=== PATIENT | male | born 1970 | race Caucasian/White ===

== ENCOUNTER 2017-07-27 15:42 | Inpatient (IN) | payer BC, OTHER ==
[~2017-07-27] VITALS: Ht 182.9 cm; Wt 102.0 kg
--- NOTE | 2017-07-27 16:00 | EMERGENCY ROOM VISIT NOTE ---
History Report prepared by Francis: Yann Hollis Under the Supervision of: Dr. Kayode Odom D.O. First contact with patient: 15:49 Chief Complaint: SWELLING TO EXTREMITY Stated Complaint: LOWER RIGHT LEG SWELLING, PAIN History of Present Illness The patient is a 46 year old male who presents to the Emergency Room with complaints of swelling in his right lower extremity. Swelling has been present for the past 2 months. He notes that it worsens intermittently throughout the day. This does improve overnight and with elevation of his leg. He describes it as a tightness. He is a gas truck driver. Denies any history of any previous blood clots. Denies any chest pain or shortness of breath. He notes all his symptoms started 2 months ago when he thinks he pulled a calf muscle. Since then he has had the intermittent swelling. He does not have a primary care doctor. He has no other complaints. Denies any exertional chest pain or shortness of breath. He is able to sleep lying flat. No history of any heart failure. Pt denies headache, change in vision, fevers, nausea, vomiting, diarrhea, pain with urination, recent trauma, recent brain bleeding, blood in urine, coughing up blood, blood in stool, and melena. Source of History: patient Onset: 2 months Position: leg (right) Quality: other (swelling) Timing: intermittent, worsening Modifying Factors (Relieving): other (elevation) Associated Symptoms: No fevers, No headache, No chest pain, No SOB, No nausea, No vomiting, No melena, No diarrhea, No urinary symptoms Review of Systems See HPI for pertinent positives & negatives. A total of 10 systems reviewed and were otherwise negative. Past Medical & Surgical Medical Problems: (1) No Known Active Medical Problems (2) Pulmonary emboli Family History Patient reports no known family medical history. Social History Smoking Status: Never Smoker Smokeless Tobacco Use: No Alcohol Use: occasionally Marital Status: in relationship Housing Status: lives with significant other Current/Historical Medications No Active Prescriptions or Reported Meds Allergies Coded Allergies: No Known Allergies (Unverified , 07/27/17) Physical Exam Vital Signs Date Time Temp Pulse Resp B/P (MAP) Pulse Ox O2 Delivery O2 Flow Rate FiO2 07/27/17 18:57 79 17 150/99 95 Room Air 07/27/17 18:05 70 18 150/101 96 Room Air 07/27/17 17:07 81 19 157/93 97 Room Air 07/27/17 15:46 36.7 80 18 150/99 95 Room Air Physical Exam GENERAL: Sitting up at the edge of the bed, alert, well appearing, well nourished, no distress, non-toxic EYE EXAM: normal conjunctiva OROPHARYNX: no exudate, no erythema, lips, buccal mucosa, and tongue normal and mucous membranes are moist NECK: supple, no nuchal rigidity, no adenopathy, non-tender LUNGS: Clear to auscultation. Normal chest wall mechanics HEART: no murmurs, S1 normal and S2 normal ABDOMEN: abdomen soft, non-tender, normo-active bowel sounds, no masses, no rebound or guarding. BACK: Back is symmetrical on inspection and there is no deformity, no midline tenderness, no CVA tenderness. SKIN: no rashes and no bruising UPPER EXTREMITIES: upper extremities are grossly normal. LOWER EXTREMITIES: Right calf larger than left with pitting edema up to the knee , DP and PT 2/4, distal pulses in tact, ambulates without difficulty. NEURO EXAM: Normal sensorium, cranial nerves II-XII grossly intact, normal speech, no gross weakness of arms, no gross weakness of legs. Medical Decision & Procedures ER Provider Diagnostic Interpretation: Radiology results as stated below per my review and the radiologist's interpretation: VENOUS DOPP LOWER EXT UNILAT CLINICAL HISTORY: 46 years-old Male presenting with swelling in rle . TECHNIQUE: Real-time grayscale and color and spectral Doppler ultrasound imaging of the veins of the right lower extremity was performed. Compression and augmentation were also utilized. COMPARISON: None. FINDINGS: Right: Common femoral vein: Patent. Femoral vein: Nearly occlusive filling defect within the right femoral vein along its entire course. Greater saphenous vein: Patent. Popliteal vein: Occlusive filling defect within the right popliteal vein except at the most inferior portion. Calf veins: Filling defects in the right posterior tibial and peroneal veins. Other: None. IMPRESSION: Acute deep venous thrombosis extending from the calf veins to the right femoral vein, which is largely occlusive or nearly occlusive. The report will be called/faxed according to standard departmental protocol. Electronically signed by: Gopi Champion M.D. 07/27/2017 5:42 PM Dictated Date/Time: 07/27/2017 5:40 PM (CHEST FOR PE) ANGIO WITH CLINICAL HISTORY: 46 years-old Male presenting with DVT with shortness of breath, right lower extremity swelling. TECHNIQUE: Multidetector CT angiography of the chest was performed after administration of intravenous contrast. 3-D volumetric and/or maximum intensity projection (MIP) images were subsequently reconstructed for review. IV contrast: 100 mL of Optiray 320. A dose lowering technique was used consistent with the principles of ALARA (as low as reasonably achievable). COMPARISON: Lower extremity venous doppler ultrasound performed the same day. CT DOSE (mGy.cm): The estimated cumulative dose is 701.51 mGy.cm. FINDINGS: Cupola Liner Helper topogram: Unremarkable. Pulmonary vasculature: The study is adequate for assessment of the pulmonary vascular tree. Bilateral extensive acute pulmonary emboli in the distal right main and left main pulmonary arteries as well as multiple lobar and segmental arteries extensively involving the lower lobes. Main pulmonary artery is mildly enlarged measuring 3.4 cm in transverse dimension. Mild flattening of the interventricular septum. No intracardiac intracardiac filling defect. No reflux of contrast into the hepatic veins. Remaining chest: On soft tissue windows, normal thyroid and thoracic inlet. No axillary, supraclavicular, hilar, or mediastinal lymphadenopathy. Normal aorta. Mild multichamber enlargement of the heart. No pericardial or pleural effusion. Hepatic steatosis. On lung windows, extensive dependent groundglass and reticular opacities in a subpleural distribution. Minimal more solid peripheral consolidation noted at the lateral base of the left lower lobe. Additional peripheral small nodular opacity in the lingula (series 4 image 131). Airways patent. On bone windows, mild degenerative changes of the thoracic spine. IMPRESSION: 1. Bilateral acute pulmonary emboli with a significant embolus burden involving the distal right and left main pulmonary arteries and their distal branches. This most probably effects the bilateral lower lobes. 2. Flattening of the interventricular septum and enlargement of the main pulmonary artery suggests right heart strain. Correlate clinically. 3. Significant dependent consolidation likely atelectasis. More nodular peripheral consolidation in the lingula and left lung base could represent early or developing infarcts. These findings were discussed with Dr. Odom by Dr. Champion at 6:30 PM on 07/27/2017. Electronically signed by: Gopi Champion M.D. 07/27/2017 6:37 PM Dictated Date/Time: 07/27/2017 6:27 PM Laboratory Results 07/27/17 16:07 Red Blood Count 5.59, Mean Corpuscular Volume 87.5, Mean Corpuscular Hemoglobin 30.2, Mean Corpuscular Hemoglobin Concent 34.6, Mean Platelet Volume 9.4, Neutrophils (%) (Auto) 63.9, Lymphocytes (%) (Auto) 24.0, Monocytes (%) (Auto) 7.5, Eosinophils (%) (Auto) 3.5, Basophils (%) (Auto) 0.8, Neutrophils # (Auto) 6.49, Lymphocytes # (Auto) 2.44, Monocytes # (Auto) 0.76, Eosinophils # (Auto) 0.36, Basophils # (Auto) 0.08 07/27/17 16:07 Test 07/27/17 16:07 White Blood Count 10.16 K/uL (4.8-10.8) Red Blood Count 5.59 M/uL (4.7-6.1) Hemoglobin 16.9 g/dL (14.0-18.0) Hematocrit 48.9 % (42-52) Mean Corpuscular Volume 87.5 fL (80-100) Mean Corpuscular Hemoglobin 30.2 pg (25-34) Mean Corpuscular Hemoglobin Concent 34.6 g/dl (32-36) Platelet Count 271 K/uL (130-400) Mean Platelet Volume 9.4 fL (7.4-10.4) Neutrophils (%) (Auto) 63.9 % Lymphocytes (%) (Auto) 24.0 % Monocytes (%) (Auto) 7.5 % Eosinophils (%) (Auto) 3.5 % Basophils (%) (Auto) 0.8 % Neutrophils # (Auto) 6.49 K/uL (1.4-6.5) Lymphocytes # (Auto) 2.44 K/uL (1.2-3.4) Monocytes # (Auto) 0.76 K/uL (0.11-0.59) Eosinophils # (Auto) 0.36 K/uL (0-0.5) Basophils # (Auto) 0.08 K/uL (0-0.2) RDW Standard Deviation 42.3 fL (36.4-46.3) RDW Coefficient of Variation 13.4 % (11.5-14.5) Immature Granulocyte % (Auto) 0.3 % Immature Granulocyte # (Auto) 0.03 K/uL (0.00-0.02) Prothrombin Time 11.0 SECONDS (9.0-12.0) Prothromb Time International Ratio 1.0 (0.9-1.1) Activated Partial Thromboplast Time 27.4 SECONDS (21.0-31.0) Partial Thromboplastin Ratio 1.1 Anion Gap 8.0 mmol/L (3-11) Est Creatinine Clear Calc Drug Dose 107.0 ml/min Estimated GFR () 91.5 Estimated GFR (Non- 79.0 BUN/Creatinine Ratio 10.7 (10-20) Calcium Level 9.8 mg/dl (8.5-10.1) Troponin I < 0.015 ng/ml (0-0.045) Pro-B-Type Natriuretic Peptide 50 pg/ml (0-450) Laboratory results per my review. Medications Administered Medications (Trade) Dose Ordered Sig/Natali Route Start Time Stop Time Status Last Admin Dose Admin Heparin Sodium/ Dextrose (Heparin 25,000 Unit/500ml D5W) 25,000 unit STK-MED ONCE .ROUTE 07/27/17 18:47 07/27/17 18:48 DC 07/27/17 18:54 25,000 UNIT Heparin Sodium (Porcine) (Heparin Sq 5000 Unit/0.5ml) 10,000 unit STK-MED ONCE .ROUTE 07/27/17 18:47 07/27/17 18:48 DC 07/27/17 18:54 7,000 UNIT ECG Indication: chest pain Rate (beats per minute): 76 Rhythm: sinus rhythm Findings: 1st degree AV block, no ectopy ED Course ED COURSE: Vital signs were reviewed and showed the patient is hypertensive. The patients medical record was reviewed The above diagnostic studies were performed and reviewed. ED treatments and interventions as stated above. 1549: The patient was evaluated in room C02B. A complete history and physical examination was performed. 1811: I reevaluated the patient, and he is going for a CT of the chest. 1832: Ordered Heparin Sodium/Dextrose 1 ea N/A 1838: Upon reevaluation, the patient is resting.I discussed my findings with the patient and he understands and agrees with the treatment plan. 1847: Ordered Heparin Sodium (Porcine) 64627 unit .ROUTE, Heparin Sodium/ Dextrose 20007 unit .ROUTE 1918: I discussed the patient's case with Dr. Yañez [facility] Hospitalist. The patient will be evaluated for further treatment and care. Based on the patients age, coexisting illnesses, exam and lab findings the decision to treat as an inpatient was made. The patient remained stable while under my care. The patient will be evaluated for further management. Medical Decision Differential diagnosis: Etiologies such as DVT, musculoskeletal, infection, joint effusion, trauma, lymphedema, idiopathic, CHF, as well as others were entertained. Patient is a 46-year-old male who presents to ER for swelling in the right lower extremity. He notes this is present for the past 2 months and waxes and wanes. He believes inciting episode/event was when he strained his calf. No previous blood clots. Pulses intact. Duplex and labs were obtained which showed extensive DVT in right lower shoulder. CT was performed and showed bilateral PEs. Patient has no bleeding risk factors. Denies any hemoptysis, hematemesis, recent trauma, recent surgery, previous brain bleeds, or melena. Heparin bolus and IV drip were started. Patient was updated following CT. Patient was admitted to internal medicine with bilateral PEs. Vitals were stable. Medication Reconcilliation Current Medication List: was personally reviewed by me Blood Pressure Screening Patient's blood pressure: Elevated blood pressure Blood pressure disposition: Referred to PCP Consults Time Called: 1910 Consulting Physician: Dr. Yañez [facility] Hospitalist Returned Call: 1918 I discussed the patient's case with Dr. Yañez [facility] Hospitalist. The patient will be evaluated for further treatment and care. Impression Primary Impression: Bilateral pulmonary embolism Additional Impression: DVT (deep venous thrombosis) Critical Care I have personally spent 35 minutes of critical care time in the direct management of this patient. This includes bedside care, interpretation of diagnostic studies, and testing, discussion with consultants, patient, and family members, and other required patient management activities. This 35 minutes is in excess of all separately billable procedures. Scribe Attestation The scribe's documentation has been prepared under my direction and personally reviewed by me in its entirety. I confirm that the note above accurately reflects all work, treatment, procedures, and medical decision making performed by me. Departure Information Dispostion Being Evaluated By Hospitalist Prescriptions No Active Prescriptions or Reported Meds Referrals Apirl Castillo D.O. (PCP) Patient Instructions My [facility] Problem Qualifiers Additional Impression: DVT (deep venous thrombosis) DVT location: lower extremity Affected thrombotic vein of extremity: unspecified vein of extremity Chronicity: acute Laterality: right Qualified Codes: I82.401 - Acute embolism and thrombosis of unspecified deep veins of right lower extremity
[2017-07-27 16:19] LABS: BASO % 0.8 %; BASO ABS # 0.08 K/uL (0-0.2); COMPLETE YES; EOS % 3.5 %; HEMATOCRIT 48.9 % (42-52); IG% 0.3 %; LYMPH ABS # 2.44 K/uL (1.2-3.4); MEAN CELL VOLUME 87.5 fL (80-100); MEAN CORPUSCULAR HEMOGLOBIN 30.2 pg (25-34); MEAN CORPUSCULAR HGB CONC 34.6 g/dl (32-36); MEAN PLATELET VOLUME 9.4 fL (7.4-10.4); MONO % 7.5 %; NEUT % 63.9 %; PLATELET COUNT 271 K/uL (130-400); RED BLOOD COUNT 5.59 M/uL (4.7-6.1); WHITE BLOOD COUNT 10.16 K/uL (4.8-10.8)
[2017-07-27 16:33] LABS: PARTIAL THROMBOPLASTIN RATIO 1.1
[2017-07-27 16:37] LABS: BUN/CREATININE RATIO 10.7 (10-20); CALCIUM 9.8 mg/dl (8.5-10.1); CREATININE 1.1 mg/dl (0.60-1.40); POTASSIUM 3.8 mmol/L (3.5-5.1)
--- NOTE | 2017-07-27 17:44 | DIAGNOSTIC IMAGING REPORT ---
VENOUS DOPP LOWER EXT UNILAT CLINICAL HISTORY: 46 years-old Male presenting with swelling in rle . TECHNIQUE: Real-time grayscale and color and spectral Doppler ultrasound imaging of the veins of the right lower extremity was performed. Compression and augmentation were also utilized. COMPARISON: None. FINDINGS: Right: Common femoral vein: Patent. Femoral vein: Nearly occlusive filling defect within the right femoral vein along its entire course. Greater saphenous vein: Patent. Popliteal vein: Occlusive filling defect within the right popliteal vein except at the most inferior portion. Calf veins: Filling defects in the right posterior tibial and peroneal veins. Other: None. IMPRESSION: Acute deep venous thrombosis extending from the calf veins to the right femoral vein, which is largely occlusive or nearly occlusive. The report will be called/faxed according to standard departmental protocol. Electronically signed by: Gopi Champion M.D. 07/27/2017 5:42 PM Dictated Date/Time: 07/27/2017 5:40 PM
[2017-07-27] MEDS ORDERED: OPTIRAY 320 IV PRN (18:00)
--- NOTE | 2017-07-27 18:39 | DIAGNOSTIC IMAGING REPORT ---
(CHEST FOR PE) ANGIO WITH CLINICAL HISTORY: 46 years-old Male presenting with DVT with shortness of breath, right lower extremity swelling. TECHNIQUE: Multidetector CT angiography of the chest was performed after administration of intravenous contrast. 3-D volumetric and/or maximum intensity projection (MIP) images were subsequently reconstructed for review. IV contrast: 100 mL of Optiray 320. A dose lowering technique was used consistent with the principles of ALARA (as low as reasonably achievable). COMPARISON: Lower extremity venous doppler ultrasound performed the same day. CT DOSE (mGy.cm): The estimated cumulative dose is 701.51 mGy.cm. FINDINGS: Laryngologist topogram: Unremarkable. Pulmonary vasculature: The study is adequate for assessment of the pulmonary vascular tree. Bilateral extensive acute pulmonary emboli in the distal right main and left main pulmonary arteries as well as multiple lobar and segmental arteries extensively involving the lower lobes. Main pulmonary artery is mildly enlarged measuring 3.4 cm in transverse dimension. Mild flattening of the interventricular septum. No intracardiac intracardiac filling defect. No reflux of contrast into the hepatic veins. Remaining chest: On soft tissue windows, normal thyroid and thoracic inlet. No axillary, supraclavicular, hilar, or mediastinal lymphadenopathy. Normal aorta. Mild multichamber enlargement of the heart. No pericardial or pleural effusion. Hepatic steatosis. On lung windows, extensive dependent groundglass and reticular opacities in a subpleural distribution. Minimal more solid peripheral consolidation noted at the lateral base of the left lower lobe. Additional peripheral small nodular opacity in the lingula (series 4 image 131). Airways patent. On bone windows, mild degenerative changes of the thoracic spine. IMPRESSION: 1. Bilateral acute pulmonary emboli with a significant embolus burden involving the distal right and left main pulmonary arteries and their distal branches. This most probably effects the bilateral lower lobes. 2. Flattening of the interventricular septum and enlargement of the main pulmonary artery suggests right heart strain. Correlate clinically. 3. Significant dependent consolidation likely atelectasis. More nodular peripheral consolidation in the lingula and left lung base could represent early or developing infarcts. These findings were discussed with Dr. Odom by Dr. Champion at 6:30 PM on 07/27/2017. Electronically signed by: Gopi Champion M.D. 07/27/2017 6:37 PM Dictated Date/Time: 07/27/2017 6:27 PM
[2017-07-27] MEDS ORDERED: HEPARIN SOD 5000 UNIT/0.5 ML CARP ONE (18:47)
[2017-07-27] MEDS ORDERED: HEPARIN 25000 UNIT/500 ML D5W ONE (18:47)
[2017-07-27] MEDS ORDERED: ACETAMINOPHEN 325 MG TAB PO PRN (19:30)
[2017-07-27] MEDS ORDERED: MoRPHine SULFATE 2 MG/ML CARP IV PRN (19:30)
[2017-07-27] MEDS ORDERED: ZOLPIDEM TARTRATE 5 MG TAB PO PRN (19:30)
[2017-07-27] MEDS ORDERED: MAGNESIUM HYDROXIDE SUSP 30 ML UDC PO PRN (19:30)
[2017-07-27] MEDS ORDERED: ONDANSETRON INJ 2 MG/ML 2 ML VIAL IV PRN (19:30)
[2017-07-27] MEDS ORDERED: ALUMINUM/MAGNESIUM/SIMETH (MAALOX MAX) 30 ML UDC PO PRN (19:30)
[2017-07-27] MEDS ORDERED: POLYETHYLENE (MIRALAX) 17 GM PACK PO PRN (19:30)
--- NOTE | 2017-07-27 19:41 | History and Physical ---
History & Physical Date & Time of Service: Jul 27, 2017 at 19:30 Chief Complaint: Lower Right Leg Swelling, Pain Primary Care Physician: No Doctor, Assigned History of Present Illness Source: patient 46 y/o M who denies a significant PMH - presenting with progressive pain and edema of his RLE. He believes this began when he sprained his calf a few weeks prior. He has not c/o SOB, CP, palpitations. He does describe a feeling of faitgue with exertion which is not normal and can feel some chest pressure with deep inspiration. Initial LE ultrasound describes an occlusive or near- occlusive R femoral DVT. CTA is notable for B/L PEs and may be consistent w/RV strain. There is no tachycardia or a strain pattern on the EKG. Past Medical/Surgical History Denies any active medical issues Family History Patient reports no known family medical history. Social History Smoking Status: Never Smoker Smokeless Tobacco Use: No Alcohol Use: none Marital Status: in relationship Allergies Coded Allergies: No Known Allergies (Unverified , 07/27/17) Home Medications No Active Prescriptions or Reported Meds Review of Systems Constitutional: No fever, No chills, No sweats Eyes: No worsening of vision ENT: No hearing loss, No unusual epistaxis, No nasal symptoms Respiratory: No cough Cardiovascular: No chest pain, No orthopnea, No PND Abdomen: No pain, No nausea, No vomiting Musculoskeletal: + muscle pain (RLE pain), + swelling, + calf pain Genitourinary - Male: No hematuria, No dysuria Neurologic: No memory loss, No paralysis, No weakness Psychiatric: No depression symptoms Endocrine: + fatigue (with exertion) Hematologic / Lymphatic: No abnormal bleeding/bruising Integumentary: No rash Allergic / Immunologic: No environmental allergies Physical Exam Vital Signs Date Time Temp Pulse Resp B/P (MAP) Pulse Ox O2 Delivery O2 Flow Rate FiO2 07/27/17 18:57 79 17 150/99 95 Room Air 07/27/17 18:05 70 18 150/101 96 Room Air 07/27/17 17:07 81 19 157/93 97 Room Air 07/27/17 15:46 36.7 80 18 150/99 95 Room Air General Appearance: WD/WN, no apparent distress Head: normocephalic Eyes: normal inspection ENT: normal ENT inspection Neck: supple, no JVD Respiratory/Chest: chest non-tender, lungs clear Cardiovascular: regular rate, rhythm, normal peripheral pulses Abdomen/GI: normal bowel sounds, non tender, soft Back: normal inspection, no CVA tenderness, no muscle spasm, normal range of motion Extremities/Musculoskelatal: normal inspection, no calf tenderness, normal capillary refill, no pedal edema, normal range of motion Neurologic/Psych: automated manufacturing instructor II-XII nml as tested, no motor/sensory deficits, alert, oriented x 3 Skin: normal color, warm/dry, no rash Diagnostics Laboratory Results Results Past 24 Hours Test 07/27/17 16:07 Range/Units White Blood Count 10.16 4.8-10.8 K/uL Red Blood Count 5.59 4.7-6.1 M/uL Hemoglobin 16.9 14.0-18.0 g/dL Hematocrit 48.9 42-52 % Mean Corpuscular Volume 87.5 80-100 fL Mean Corpuscular Hemoglobin 30.2 25-34 pg Mean Corpuscular Hemoglobin Concent 34.6 32-36 g/dl Platelet Count 271 130-400 K/uL Mean Platelet Volume 9.4 7.4-10.4 fL Neutrophils (%) (Auto) 63.9 % Lymphocytes (%) (Auto) 24.0 % Monocytes (%) (Auto) 7.5 % Eosinophils (%) (Auto) 3.5 % Basophils (%) (Auto) 0.8 % Neutrophils # (Auto) 6.49 1.4-6.5 K/uL Lymphocytes # (Auto) 2.44 1.2-3.4 K/uL Monocytes # (Auto) 0.76 0.11-0.59 K/uL Eosinophils # (Auto) 0.36 0-0.5 K/uL Basophils # (Auto) 0.08 0-0.2 K/uL RDW Standard Deviation 42.3 36.4-46.3 fL RDW Coefficient of Variation 13.4 11.5-14.5 % Immature Granulocyte % (Auto) 0.3 % Immature Granulocyte # (Auto) 0.03 0.00-0.02 K/uL Prothrombin Time 11.0 9.0-12.0 SECONDS Prothromb Time International Ratio 1.0 0.9-1.1 Activated Partial Thromboplast Time 27.4 21.0-31.0 SECONDS Partial Thromboplastin Ratio 1.1 Sodium Level 138 136-145 mmol/L Potassium Level 3.8 3.5-5.1 mmol/L Chloride Level 103 98-107 mmol/L Carbon Dioxide Level 28 21-32 mmol/L Anion Gap 8.0 3-11 mmol/L Blood Urea Nitrogen 12 7-18 mg/dl Creatinine 1.10 0.60-1.40 mg/dl Est Creatinine Clear Calc Drug Dose 107.0 ml/min Estimated GFR () 91.5 Estimated GFR (Non- 79.0 BUN/Creatinine Ratio 10.7 10-20 Random Glucose 79 70-99 mg/dl Calcium Level 9.8 8.5-10.1 mg/dl Pro-B-Type Natriuretic Peptide 50 0-450 pg/ml Diagnostic Radiology RLE US: Acute deep venous thrombosis extending from the calf veins to the right femoral vein, which is largely occlusive or nearly occlusive. CTA: 1. Bilateral acute pulmonary emboli with a significant embolus burden involving the distal right and left main pulmonary arteries and their distal branches. This most probably effects the bilateral lower lobes. 2. Flattening of the interventricular septum and enlargement of the main pulmonary artery suggests right heart strain. Correlate clinically. 3. Significant dependent consolidation likely atelectasis. More nodular peripheral consolidation in the lingula and left lung base could represent early or developing infarcts. EKG NSR Impression Assessment and Plan 46 y/o M who denies a significant PMH - presenting with progressive pain and edema of his RLE. He believes this began when he sprained his calf a few weeks prior. He has not c/o SOB, CP, palpitations. Initial LE ultrasound describes an occlusive R femoral DVT. CTA is notable for B/L PEs and may be consistent w/ RV strain. There is no tachycardia or a strain pattern on the EKG. 1) DVT/PE - pt placed on Heparin and will monitor on telemetry overnight. He can likely follow with hematology as outpt for hypercoag workup. He does have possible trauma, stasis and obesity as risk factors for PE and may not be inherently hypercoagulable. Full code - Full dose heparin - total time for this admit including review of labs, imaging - discussion with pt and ER attending 33 min Level of Care Telemetry Resuscitation Status FULL RESUSCITATION VTE Prophylaxis VTE Risk Assessment Done? Y/N: Yes Risk Level: High Given or contraindicated: Other Anticoagulation
[2017-07-27 20:52] VITALS: BP 144/104; PULSE 71; TEMP 36.6; O2SAT 97; Ht 182.9 cm; Wt 102.0 kg
[2017-07-27] MEDS ORDERED: HEPARIN 25,000 UNIT/500ML D5W 500 ML IV PRN (21:00)
[2017-07-27 22:12] VITALS: BP 124/76
[2017-07-28 00:03] VITALS: BP 103/64; PULSE 74; TEMP 36.4; O2SAT 97
[2017-07-28 03:33] LABS: PARTIAL THROMBOPLASTIN RATIO 2.2
[2017-07-28 04:00] VITALS: BP 116/72; PULSE 60; TEMP 36.6; O2SAT 95
[2017-07-28 06:08] LABS: HEMATOCRIT 45.3 % (42-52); MEAN CELL VOLUME 87.6 fL (80-100); MEAN CORPUSCULAR HEMOGLOBIN 30.2 pg (25-34); MEAN CORPUSCULAR HGB CONC 34.4 g/dl (32-36); MEAN PLATELET VOLUME 9.6 fL (7.4-10.4); PLATELET COUNT 228 K/uL (130-400); RED BLOOD COUNT 5.17 M/uL (4.7-6.1); WHITE BLOOD COUNT 8.17 K/uL (4.8-10.8)
[2017-07-28 07:25] LABS: PARTIAL THROMBOPLASTIN RATIO 2.2
[2017-07-28 07:28] VITALS: BP 110/71; PULSE 69; TEMP 36.5; O2SAT 97
[2017-07-28] MEDS ORDERED: NURSING VERBAL MED ORDER ONE (11:15)
[2017-07-28] MEDS ORDERED: RIVAROXABAN TAB 15 MG TAB PO ONE (11:30)
[2017-07-28] MEDS ORDERED: INFLUENZA ADMINISTRATION CHARGE ONE (11:30)
[2017-07-28] MEDS ORDERED: INFLUENZA VIRUS QUAD VACCINE 0.5 ML SYR IM. ONE (11:30)
[2017-07-28 12:10] VITALS: BP 122/84; PULSE 66; TEMP 36.4; O2SAT 95
[2017-07-28 13:42] VITALS: BP 122/84; PULSE 66; TEMP 36.4; O2SAT 95
--- NOTE | 2017-07-28 14:38 | Discharge Instructions ---
Discharge Instructions Date of Service Jul 28, 2017. Admission Reason for Admission: Pulmonary Embolism Discharge Discharge Diagnosis / Problem: DVT/ Pulmonary embolism Discharge Goals Goal(s): Decrease discomfort, Improve function Activity Recommendations Activity Limitations: as noted below Lifting Limitations: gradually increase as tolerated Exercise/Sports Limitations: until after follow-up appointment Shower/Bathe: no limitations Driving or Machine Use: no limitations . Instructions / Follow-Up Instructions / Follow-Up Follow up within 1 week with PCP from [facility] in [facility] Diet Patient's current hospital diet: Regular Diet Discharge Diet Recommended Diet: Regular Diet Pending Studies Studies pending at discharge: no Medical Emergencies . Who to Call and When: Medical Emergencies: If at any time you feel your situation is an emergency, please call 911 immediately. . Non-Emergent Contact Non-Emergency issues call your: Primary Care Provider Call Non-Emergent contact if: your pain is worsening shortness of breath worsens . . "Provider Documentation" section prepared by Ernie Lizama. . VTE Core Measure Inpt VTE Proph given/why not?: Other Anticoagulation
[2017-07-28] MEDS ORDERED: RIVA1TAB4 PO ×2 (14:45)
[2017-07-28] MEDS ORDERED: XRL15 PO (14:45)
[2017-07-28] MEDS ORDERED: RIVAROXABAN TAB 15 MG TAB PO SCH (21:00)
== END 2017-07-28 15:15 | disposition home or self-care (01) | DRG 176 ==
LOC: C.EDB 15:43 → C.2E 19:29 → ENRESERV 19:55
PROVIDERS: ADMIT Internal Medicine; ATTEND Internal Medicine
DX: I26.99 Other pulmonary embolism without acute cor pulmonale (principal); I82.401 Acute embolism and thrombosis of unspecified deep veins of right lower extremity; Z86.711 Personal history of pulmonary embolism

== ENCOUNTER → 2017-08-27 | Outpatient (CLI) | payer BC ==
[~2017-08-27] MED LIST: RIVA1TAB4 PO; XRL15 PO
[2017-08-27 12:58] LABS: THYROID STIMULATING HORMONE 4.95 uIu/ml (0.300-4.500)
[2017-08-29 14:05] LABS: MICROSOMAL AB 242 IU/ML (<9)
== END | disposition home or self-care (01) ==
LOC: C.LABPBG 10:46
PROVIDERS: ATTEND Family Medicine
DX: R94.6 Abnormal results of thyroid function studies (principal)

== ENCOUNTER → 2017-09-03 | Day surgery (SDC) | payer BC ==
[2017-08-27 07:52] VITALS: BMI 34.0
[~2017-09-03] VITALS: Ht 182.9 cm; Wt 115.9 kg
[~2017-09-03] MED LIST changes: +ATROPINE SULFATE 0.1 MG/ML 5ML SYR IV PRN; +EpHEDrine SULFATE INJ 50 MG/ML AMP IV PRN; +LIDOCAINE HCL 2% 2 ML VIAL (20MG/ML) ONE; +PROPOFOL IV EMULSION 10 MG/ML 20 ML VIAL IV ONE; -XRL15 PO
[2017-09-03 12:35] VITALS: Ht 182.9 cm; Wt 115.9 kg
--- NOTE | 2017-09-03 12:52 | Endo History and Physical ---
History & Physical Date of Service: Sep 03, 2017. Chief Complaint: screening Referring Physician: Dr. Olmedo History of Present Illness For colonoscopy Past Surgical History Hx Cardiac Surgery: No Hx Internal Defibrillator: No Hx Pacemaker: No Hx Abdominal Surgery: No Hx of Implantable Prosthesis: No Hx Cancer Surgery: No Hx Thoracic Surgery: No Hx Orthopedic: No Hx Urinary Tract Surgery: No Family History None Social History Smoking Status: Never Smoker Hx Substance Use: No Hx Alcohol Use: Yes (OCCASIONALLY) Allergies Coded Allergies: No Known Allergies (Unverified , 09/03/17) Current Medications Reported Home Medications Medications Dose Route/Sig Max Daily Dose Days Date Category Xarelto (Rivaroxaban) 20 Mg Tab 20 Mg PO QAM 08/27/17 Reported Vital Signs Weight (Kilograms): 115.91 Height (Feet): 6 Height (Inches): 0 Date Time Temp Pulse Resp B/P (MAP) Pulse Ox O2 Delivery O2 Flow Rate FiO2 09/03/17 12:45 36.5 80 20 141/89 (106) 95 Room Air Physical Exam General Appearance: + obese Respiratory/Chest: Respiratory effort: no dyspnea Cardiovascular: Heart Auscultation: RRR Abdomen: Inspection & Palpation: soft Assessment and Plan For screening colonoscopy
--- NOTE | 2017-09-03 13:22 | Discharge Instructions ---
Endoscopy Patient Instructions Date / Procedure(s) Performed Sep 03, 2017. Colonoscopy Allergy Information Coded Allergies: No Known Allergies (Unverified , 09/03/17) Discharge Date / Findings Sep 03, 2017. 3 polyps Medication Instructions Restart Stopped Medication(s): resume meds Reported Home Medications Medications Dose Route/Sig Max Daily Dose Days Date Category Xarelto (Rivaroxaban) 20 Mg Tab 20 Mg PO QAM 08/27/17 Reported Provider Instructions Activity Restrictions - No exercising or heavy lifting for 24 hours. - Do not drink alcohol the day of the procedure. - Do not drive a car or operate machinery until the day after the procedure. - Do not make any important decisions or sign important papers in 24 hours after the procedure. Following Day: - Return to full activity which may include returning to work/school. Diet Start your diet with liquids and light foods (jello, soup, juice, toast). Then eat your usual diet if not nauseated. Treatment For Common After Affects For mild abdominal pain, bloating, or excessive gas: - Rest - Eat lightly - Lie on right side Follow-Up Information Follow-up with Dr. Olmedo as scheduled Anesthesia Information What You Should Know You have had a procedure that required some medicine to reduce anxiety and discomfort. This treatment is called moderate sedation. After receiving the treatment, you may be sleepy, but you will be able to breathe on your own. The effects of the treatment may last for several hours. Follow these instructions along with Activity/Diet recommendations noted above: * Do NOT do anything where dizziness or clumsiness would be dangerous. * Rest quietly at home today, then you can be up and about tomorrow. * Have a responsible person stay with you the rest of today. * You may have had an I.V. today. If so, you may take the dressing off later today. Recommendations Call your doctor if: * Trouble breathing * Continuous vomiting for more than 24 hours * Temperature above 101 degrees * Severe abdominal pain or bloating * Pain not relieved by pain medicine ordered * There is increased drainage or redness from any incision * A large amount of rectal bleeding greater than 2-3 tablespoons. (If you had a polyp/s removed or have hemorrhoids, a small amount of blood - from the rectum is to be expected.) * You have any unanswered questions or concerns. IN THE EVENT OF A SERIOUS EMERGENCY, GO TO THE NEAREST EMERGENCY ROOM Your discharge instructions were prepared by provider Talat Woods. Patient Instructions Signature Page Josh England Patient (or Guardian) Signature/Date: I have read and understand the instructions given to me by my caregivers. Caregiver/RN/Doctor Signature/Date: The above-named patient and/or guardian has received patient instructions on this date. + Original Patient Signature Page (only) stays with chart. Please make copy for patient.
--- NOTE | 2017-09-03 13:26 | GI REPORT ---
Procedure Date: 09/03/2017 12:25 PM Procedure: Colonoscopy Indications: Screening for colorectal malignant neoplasm Medicines: Propofol total dose 300 mg IV, Lidocaine 40 mg IV Complications: No immediate complications. Estimated Blood Loss: Estimated blood loss was minimal. Procedure: Pre-Anesthesia Assessment: - Prior to the procedure, a History and Physical was performed, and patient medications, allergies and sensitivities were reviewed. The patient's tolerance of previous anesthesia was reviewed. - The risks and benefits of the procedure and the sedation options and risks were discussed with the patient. All questions were answered and informed consent was obtained. After I obtained informed consent, the scope was passed under direct vision. Throughout the procedure, the patient's blood pressure, pulse, and oxygen saturations were monitored continuously. The Scope was introduced through the anus and advanced to the cecum, identified by appendiceal orifice and ileocecal valve. The colonoscopy was performed without difficulty. The patient tolerated the procedure well. The quality of the bowel preparation was excellent. Findings: A 4 mm polyp was found in the sigmoid colon. The polyp was sessile. The polyp was removed with a hot snare. Resection and retrieval were complete. Estimated blood loss was minimal. A 5 mm polyp was found at 20 cm proximal to the anus. The polyp was sessile. The polyp was removed with a hot snare. Resection and retrieval were complete. Estimated blood loss was minimal. A 6 mm polyp was found in the recto-sigmoid colon. The polyp was semi-sessile. The polyp was removed with a hot snare. Resection and retrieval were complete. Estimated blood loss: none. Impression: - One 4 mm polyp in the sigmoid colon, removed with a hot snare. Resected and retrieved. - One 5 mm polyp at 20 cm proximal to the anus, removed with a hot snare. Resected and retrieved. - One 6 mm polyp at the recto-sigmoid colon, removed with a hot snare. Resected and retrieved. Recommendation: - Discharge patient to home (ambulatory). - Continue present medications. - Await pathology results. - Return to primary care physician PRN. Talat Woods M.D. Talat Woods MD 09/03/2017 1:25:40 PM This report has been signed electronically. Note Initiated On: 09/03/2017 12:25 PM I attest to the content of the Intraoperative Record and orders documented therein, exceptions below
--- NOTE | 2017-09-03 13:29 | Anesthesiology Progress Note ---
Anesthesia Post Op Note Date & Time Sep 03, 2017 at 13:29 Vital Signs Pain Intensity: 0 Vital Signs Past 12 Hours Date Time Temp Pulse Resp B/P (MAP) Pulse Ox O2 Delivery O2 Flow Rate FiO2 09/03/17 13:25 77 20 161/98 (119) 91 Room Air 09/03/17 12:45 36.5 80 20 141/89 (106) 95 Room Air Notes Mental Status: alert / awake / arousable, participated in evaluation Pt Amnestic to Procedure: Yes Nausea / Vomiting: adequately controlled Pain: adequately controlled Airway Patency, RR, SpO2: stable & adequate BP & HR: stable & adequate Hydration State: stable & adequate Anesthetic Complications: no major complications apparent
[2017-09-03 13:50] VITALS: BP 163/107; PULSE 79; O2SAT 96
== END | disposition home or self-care (01) ==
LOC: C.GI 12:17
PROVIDERS: ATTEND Internal Medicine Gastroenterology
DX: Z12.11 Encounter for screening for malignant neoplasm of colon (principal); D12.7 Benign neoplasm of rectosigmoid junction; K63.5 Polyp of colon; Z79.01 Long term (current) use of anticoagulants

== ENCOUNTER 2017-12-21 16:23 | Emergency (ER) | payer SELFPAY ==
[~2017-12-21] VITALS: Ht 182.9 cm; Wt 117.8 kg
[~2017-12-21 16:23] MED LIST changes: -ATROPINE SULFATE 0.1 MG/ML 5ML SYR IV PRN; -EpHEDrine SULFATE INJ 50 MG/ML AMP IV PRN; -LIDOCAINE HCL 2% 2 ML VIAL (20MG/ML) ONE; -PROPOFOL IV EMULSION 10 MG/ML 20 ML VIAL IV ONE
[2017-12-21 16:28] VITALS: TEMP 36.8; Ht 182.9 cm; Wt 117.8 kg
--- NOTE | 2017-12-21 16:58 | EMERGENCY ROOM VISIT NOTE ---
History Report prepared by Francis: Fito Hood Under the Supervision of: Dr. Callum Mak M.D. First contact with patient: 16:32 Chief Complaint: ABNORMAL DIAGNOSTIC TESTING Stated Complaint: RT LEG SWELLING History of Present Illness The patient is a 47 year old male with a past medical history of previous PEs, Factor V Leiden and hypertension who presents to the ED with a cc of a constant right leg pain beginning today. Positive for worsening SOB, weight gain, headaches, lower extremity swelling, large veins, and a dry cough. Negative for fever, chills, nausea, and vomiting. The patient states that he has been having swollen feet in the last week. He also notes that the veins in his leg have been enlarged as well. 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 The patient states that he had an US done yesterday, which showed an extensive DVT in his right leg. He notes that his US results prompted him to come to the emergency department today. He reports that he takes Xarelto, but states that it does not seem to be helping his symptoms. The patient states that he has no family history of blood clots. He notes that the pain in his right leg has been coming and going since his PE last year, but reports that there is always discomfort. He states that propping up his leg helps with his pain. The patient notes that his SOB becomes worse when he lies flat and walks around. Source of History: patient Onset: today Position: leg (right) Timing: constant Modifying Factors (Relieving): other (propping up his leg) Associated Symptoms: + headache, + cough (dry), + SOB (worsening), No fevers , No chills, No nausea, No vomiting Note: He also complains of weight gain, lower extremity swelling, and large veins. Review of Systems See HPI for pertinent positives and negatives. A total of ten systems were reviewed and were otherwise negative. Past Medical & Surgical Medical Problems: (1) Factor V Leiden (2) Hypertension (3) Pulmonary emboli Family History Patient reports no known family medical history. Social History Smoking Status: Never Smoker Alcohol Use: occasionally Marital Status: in relationship Housing Status: lives with significant other Occupation Status: unemployed Current/Historical Medications Scheduled Rivaroxaban (Xarelto), 20 MG PO QAM Allergies Coded Allergies: No Known Allergies (Unverified , 09/03/17) Physical Exam Vital Signs Date Time Temp Pulse Resp B/P (MAP) Pulse Ox O2 Delivery O2 Flow Rate FiO2 12/21/17 18:25 85 21 177/112 94 Room Air 12/21/17 17:47 98 Room Air 12/21/17 17:14 94 12/21/17 16:28 36.8 89 20 140/103 94 Room Air Physical Exam GENERAL: Awake, alert, well-appearing, NAD HENT: Normocephalic, atraumatic. EYES: Normal conjunctiva. Sclera non-icteric. NECK: Supple. No nuchal rigidity. FROM. RESPIRATORY: CTAB, no rhonchi, wheezing, crackles CARDIAC: RRR, no MRG ABDOMEN: Soft, NTND, BS+ MSK: No chest wall TTP, swelling of right leg compared to left, pain with palpation of calf, NVI distally NEURO: GCS 15, CN 2-12 intact, moves all 4s on command SKIN: No rash or jaundice noted. Medical Decision & Procedures ER Provider Diagnostic Interpretation: ULTRASOUND VENOUS DOPPLER ULTRASOUND OF THE RIGHT LOWER EXTREMITY FINDINGS: There is thrombus within the right femoral vein and popliteal vein. The proximal calf veins appear patent. The common femoral vein appears patent. IMPRESSION: Persistent extensive right leg DVT involving the superficial femoral vein and popliteal vein. Electronically signed by: Low Pierre M.D. 12/21/2017 4:08 PM Radiology results as stated below per my review and radiologist interpretation: CHEST ONE VIEW PORTABLE FINDINGS: The heart is normal in size. There is mild prominence of the superior mediastinum, likely secondary to prominent mediastinal fat deposition given the findings on the prior CT scan. There is no focal pulmonary consolidation. There is no failure. There are no pleural effusions. There is no pneumothorax.[ IMPRESSION: No active disease in the chest. Electronically signed by: Low Pierre M.D. 12/21/2017 5:33 PM Laboratory Results 12/21/17 17:15 Red Blood Count 5.77, Mean Corpuscular Volume 87.2, Mean Corpuscular Hemoglobin 32.1, Mean Corpuscular Hemoglobin Concent 36.8, Mean Platelet Volume 9.5, Neutrophils (%) (Auto) 56.5, Lymphocytes (%) (Auto) 27.7, Monocytes (%) (Auto) 10.1, Eosinophils (%) (Auto) 4.6, Basophils (%) (Auto) 1.0, Neutrophils # (Auto ) 4.56, Lymphocytes # (Auto) 2.24, Monocytes # (Auto) 0.82, Eosinophils # (Auto ) 0.37, Basophils # (Auto) 0.08 12/21/17 17:15 Test 12/21/17 17:15 12/21/17 17:45 White Blood Count 8.08 K/uL (4.8-10.8) Red Blood Count 5.77 M/uL (4.7-6.1) Hemoglobin 18.5 g/dL (14.0-18.0) Hematocrit 50.3 % (42-52) Mean Corpuscular Volume 87.2 fL (80-100) Mean Corpuscular Hemoglobin 32.1 pg (25-34) Mean Corpuscular Hemoglobin Concent 36.8 g/dl (32-36) Platelet Count 205 K/uL (130-400) Mean Platelet Volume 9.5 fL (7.4-10.4) Neutrophils (%) (Auto) 56.5 % Lymphocytes (%) (Auto) 27.7 % Monocytes (%) (Auto) 10.1 % Eosinophils (%) (Auto) 4.6 % Basophils (%) (Auto) 1.0 % Neutrophils # (Auto) 4.56 K/uL (1.4-6.5) Lymphocytes # (Auto) 2.24 K/uL (1.2-3.4) Monocytes # (Auto) 0.82 K/uL (0.11-0.59) Eosinophils # (Auto) 0.37 K/uL (0-0.5) Basophils # (Auto) 0.08 K/uL (0-0.2) RDW Standard Deviation 42.3 fL (36.4-46.3) RDW Coefficient of Variation 13.3 % (11.5-14.5) Immature Granulocyte % (Auto) 0.1 % Immature Granulocyte # (Auto) 0.01 K/uL (0.00-0.02) Prothrombin Time 10.7 SECONDS (9.0-12.0) Prothromb Time International Ratio 1.0 (0.9-1.1) Activated Partial Thromboplast Time 28.2 SECONDS (21.0-31.0) Partial Thromboplastin Ratio 1.1 D-Dimer 270 ug/L FEU (0-500) Anion Gap 9.0 mmol/L (3-11) Est Creatinine Clear Calc Drug Dose 108.6 ml/min Estimated GFR () 91.9 Estimated GFR (Non- 79.3 BUN/Creatinine Ratio 17.2 (10-20) Calcium Level 9.5 mg/dl (8.5-10.1) Total Bilirubin 0.6 mg/dl (0.2-1) Aspartate Amino Transf (AST/SGOT) 21 U/L (15-37) Alanine Aminotransferase (ALT/SGPT) 57 U/L (12-78) Alkaline Phosphatase 64 U/L (45-117) Troponin I < 0.015 ng/ml (0-0.045) Pro-B-Type Natriuretic Peptide < 5 pg/ml (0-450) Total Protein 8.6 gm/dl (6.4-8.2) Albumin 4.2 gm/dl (3.4-5.0) Globulin 4.4 gm/dl (2.5-4.0) Albumin/Globulin Ratio 1.0 (0.9-2) Urine Color DK YELLOW Urine Appearance CLEAR (CLEAR) Urine pH 5.0 (4.5-7.5) Urine Specific [place] 1.026 (1.000-1.030) Urine Protein 1+ (NEG) Urine Glucose (UA) NEG (NEG) Urine Ketones NEG (NEG) Urine Occult Blood NEG (NEG) Urine Nitrite NEG (NEG) Urine Bilirubin NEG (NEG) Urine Urobilinogen NEG (NEG) Urine Leukocyte Esterase NEG (NEG) Urine WBC (Auto) 1-5 /hpf (0-5) Urine RBC (Auto) 0-4 /hpf (0-4) Urine Hyaline Casts (Auto) 1-5 /lpf (0-5) Urine Epithelial Cells (Auto) 10-20 /lpf (0-5) Urine Bacteria (Auto) NEG (NEG) Laboratory results reviewed by me ECG Per My Interpretation Indication: SOB/dyspnea Rate (beats per minute): 79 Rhythm: sinus rhythm Findings: complete heart block, other (Normal axis, no STS changes or TWI) ED Course 1633: The patient was evaluated in room A3. A complete history and physical exam was performed. 1644: Discussed the patient's case with Dr. Pierre - Radiologist, [facility]. He states that the patient's US is unchanged. 165: I spoke to Dr. Rudi Osborn. She recommended to get a D dimer on the patient. She states that if the D dimer came back grossly elevated, to get CT PE protocol. She notes that if the patient still has extensive burden to consider Coumadin compared to a factor XA inhibitor. 180: I reevaluated and updated the patient. I paged for Dr. Alicea - Hematology, [facility]. 182: I spoke to Dr. Choudhury - Hematology, [facility]. He suggests that I should not do anything different, and that the patient should arrange a follow up with heme. 185: I reevaluated the patient. Discussed results and discharge instructions: He verbalized understanding and agreement. The patient is ready for discharge. Medical Decision The patient is a 47 year old male with a past medical history of previous PEs, Factor V Leiden and hypertension who presents to the ED with a cc of a constant right leg pain beginning today. Positive for worsening SOB, weight gain, headaches, lower extremity swelling, large veins, and a dry cough. Negative for fever, chills, nausea, and vomiting. Differential diagnosis: Etiologies such as infections, reactive airway disease, pneumonia, pneumothorax , COPD, CHF, cardiac ischemia, pulmonary embolism, musculoskeletal, gastrointestinal, as well as others were entertained. Prior records were reviewed. The patient did suffer extensive DVT and bilateral PEs back in July. The patient was placed on Xarelto. Patient was seen and evaluated the bedside. Patient did have a DVT ultrasound completed today with respect to obtaining given that the patient is still been symptomatic with some right lower extremity discomfort, swelling, shortness of breath. Patient does complain of some PERDUE as well as mild orthopnea. Patient does not appear volume overloaded but does have some swelling of the right lower extremity. Patient is otherwise neuro intact. Patient was recently diagnosed with factor V Leiden. 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 A repeat ultrasound was obtained this morning which did show extensive clot. I did speak with the radiologist who said this study was essentially unchanged. I did discuss I did speak with 1 of the anticoagulation experts with hematology who recommended a d-dimer. If the d-dimer is grossly positive she recommended a repeat CT PE protocol to rule out PE with worsening burden. Furthermore, if this is the case she stated it may be of benefit to start the patient on Coumadin. Patient's dimer was normal. The patient had a normal EKG, troponin, and BNP. Given all this elected not to obtain a CT PE protocol. I did discuss case with the on-call patient care manager who recommended not doing anything different at this time. He should continue on the Xarelto. He will have a follow-up appointment. I did discuss the patient with the vocational case manager in order to help obtain that follow-up. I did explain the findings to the patient and the plan of care. He is in agreement with this. Patient was deemed suitable for outpatient follow-up and treatment at this time. Patient was given strict follow-up, discharge, and return precautions. All questions were answered. Patient was deemed suitable for outpatient follow-up at this time. Patient agreed with the plan of care and was safely discharged home. Head Trauma GCS Score: 15 Blood Pressure Screening Patient's blood pressure: Elevated blood pressure Blood pressure disposition: Referred to PCP Consults Time Called: 164 Consulting Physician: Dr. Pierre - Radiologist, [facility] Returned Call: 164 Discussed the patient's case. He states that the patient's US is unchanged. Additional Consults: Time Called: 164 Consulted Physician: Dr. Grijalva - [facility] Returned Call: [phone] Additional Comments: Discussed the patient's case. She recommended to get a D dimer on the patient. She states that if the D dimer came back grossly elevated, to get CT PE protocol. She notes that if the patient still has extensive burden to consider Coumadin compared to a factor XA inhibitor. Time Called: 180 Consulted Physician: Dr. Choudhury - Hematology, [facility] Returned Call: [phone] Additional Comments: He suggests that I should not do anything different, and that the patient should arrange a follow up with heme. Impression Primary Impression: DVT (deep venous thrombosis) Additional Impression: Leg pain Scribe Attestation The scribe's documentation has been prepared under my direction and personally reviewed by me in its entirety. I confirm that the note above accurately reflects all work, treatment, procedures, and medical decision making performed by me. Departure Information Dispostion Home / Self-Care Referrals Cheri Olmedo, (PCP) Josh Alicea D.O. Patient Instructions DVT, DVT Prevent, My [facility] Additional Instructions Please return to the emergency department if you have worsening or recurrent symptoms not amenable to at-home treatment. Please call for a follow-up appointment with her primary care physician. Please take your medications as prescribed. If you have other concerns and/or complaints please feel free to also call your primary care physician's office or return the ED for further evaluation, management, and treatment. You were found to have an elevated blood pressure today (>120 sytolic or >90 diastolic). Per medicare guidelines, you need to follow up with this blood pressure screening with your Primary Care Physician (PCP). For a new PCP call [phone]. Take your medications as prescribed. If taking an antibiotic consider taking a probiotic and/or eating yogurt, but at the least, please take with food as it can cause upset stomach. You have been examined and treated today on an emergency basis only. This is not a substitute for, or an effort to provide, complete comprehensive medical care. It is impossible to recognize and treat all injuries or illnesses in a single emergency department visit. It is therefore important that you follow up closely with [facility], your PCP, and/or your specialist(s). Call as soon as possible for an appointment. Thank you for your time and consideration. I look forward to speaking with you again soon. Please don't hesitate to call us if you have any questions. Problem Qualifiers
[2017-12-21] MEDS ORDERED: OPTIRAY 320 IV PRN (17:00)
[2017-12-21 17:34] LABS: BASO ABS # 0.08 K/uL (0-0.2); EOS % 4.6 %; EOS ABS # 0.37 K/uL (0-0.5); HEMATOCRIT 50.3 % (42-52); HEMOGLOBIN 18.5 g/dL (14.0-18.0); IG# 0.01 K/uL (0.00-0.02); LYMPH % 27.7 %; LYMPH ABS # 2.24 K/uL (1.2-3.4); MEAN CELL VOLUME 87.2 fL (80-100); MEAN CORPUSCULAR HEMOGLOBIN 32.1 pg (25-34); MEAN CORPUSCULAR HGB CONC 36.8 g/dl (32-36); MEAN PLATELET VOLUME 9.5 fL (7.4-10.4); MONO % 10.1 %; MONO ABS # 0.82 K/uL (0.11-0.59); NEUT % 56.5 %; NEUT ABS # 4.56 K/uL (1.4-6.5); PLATELET COUNT 205 K/uL (130-400); RED CELL DISTRIBUTION WIDTH CV 13.3 % (11.5-14.5); RED CELL DISTRIBUTION WIDTH SD 42.3 fL (36.4-46.3); WHITE BLOOD COUNT 8.08 K/uL (4.8-10.8)
--- NOTE | 2017-12-21 17:34 | DIAGNOSTIC IMAGING REPORT ---
CHEST ONE VIEW PORTABLE CLINICAL HISTORY: Shortness of breath. History of DVT. COMPARISON STUDY: CT scan performed July 2017 FINDINGS: The heart is normal in size. There is mild prominence of the superior mediastinum, likely secondary to prominent mediastinal fat deposition given the findings on the prior CT scan. There is no focal pulmonary consolidation. There is no failure. There are no pleural effusions. There is no pneumothorax.[ IMPRESSION: No active disease in the chest. Electronically signed by: Low Pierre M.D. 12/21/2017 5:33 PM Dictated Date/Time: 12/21/2017 5:32 PM
[2017-12-21 17:47] VITALS: O2SAT 98
[2017-12-21 17:50] LABS: PTT PATIENT 28.2 SECONDS (21.0-31.0)
[2017-12-21 17:51] LABS: ALBUMIN 4.2 gm/dl (3.4-5.0); ALT/SGPT 57 U/L (12-78); AST/SGOT 21 U/L (15-37); BLOOD UREA NITROGEN 19 mg/dl (7-18); CALCIUM 9.5 mg/dl (8.5-10.1); CARBON DIOXIDE 22 mmol/L (21-32); CREATININE 1.09 mg/dl (0.60-1.40); GLUCOSE 103 mg/dl (70-99); POTASSIUM 3.8 mmol/L (3.5-5.1); SODIUM 136 mmol/L (136-145)
[2017-12-21 17:56] LABS: ALKALINE PHOSPHATASE 64 U/L (45-117); TOTAL PROTEIN 8.6 gm/dl (6.4-8.2)
[2017-12-21 19:16] VITALS: BP 172/98; PULSE 76; O2SAT 98
== END 2017-12-21 19:27 | disposition home or self-care (01) ==
LOC: C.EDB 16:25 → C.EDA 19:27
DX: I82.411 Acute embolism and thrombosis of right femoral vein (principal); I82.431 Acute embolism and thrombosis of right popliteal vein; M79.604 Pain in right leg; D68.51 Activated protein C resistance; I10 Essential (primary) hypertension; Z86.718 Personal history of other venous thrombosis and embolism; R06.02 Shortness of breath; R51 Headache; R60.0 Localized edema; Z79.01 Long term (current) use of anticoagulants

== ENCOUNTER → 2018-03-04 | Outpatient (CLI) | payer OTHER ==
[~2018-03-04] MED LIST changes: +CMD5 PO; +LEVO50TA PO; -RIVA1TAB4 PO; +WARF5TAB90 PO
== END | disposition home or self-care (01) ==
LOC: C.LABPBG 06:59
PROVIDERS: ATTEND Family Medicine
DX: E03.9 Hypothyroidism, unspecified (principal)

== ENCOUNTER → 2018-06-07 | Outpatient (CLI) | payer OTHER ==
[2018-06-07 13:50] LABS: INR 2.4 (0.9-1.1)
[2018-06-07 14:45] LABS: BLOOD UREA NITROGEN 16 mg/dl (7-18); CALCIUM 9.2 mg/dl (8.5-10.1); CARBON DIOXIDE 26 mmol/L (21-32); CHOLESTEROL 175 mg/dl (0-200); CREATININE 1.02 mg/dl (0.60-1.40); GLUCOSE 89 mg/dl (70-99); LDL CHOLESTEROL CALCULATED 113 mg/dl; SODIUM 140 mmol/L (136-145)
== END | disposition home or self-care (01) ==
LOC: C.LABPBG 08:22
PROVIDERS: ATTEND Family Medicine
DX: I82.401 Acute embolism and thrombosis of unspecified deep veins of right lower extremity (principal); E78.5 Hyperlipidemia, unspecified; E03.9 Hypothyroidism, unspecified; I26.99 Other pulmonary embolism without acute cor pulmonale